=== PATIENT | male | born 1960 | race Caucasian/White ===

== ENCOUNTER 2025-07-25 06:25 | Day surgery (SDC) | payer OTHER, SELFPAY ==
--- NOTE | 2025-07-24 14:43 | SUR.PREOP ---
Pt will arrived tomorrow at 0630, [facility] personnel.
[2025-07-24 14:45] VITALS: BMI 32.3
--- NOTE | 2025-07-24 15:43 | ESCONSULT_ITS ---
RE: LINDSAY COATS : 1960 DATE OF CONSULTATION: 07/24/2025 HISTORY OF PRESENT ILLNESS: Patient is a 64-year-old inmate from [facility]. He has a history of urinary retention. This is the first time he has a catheter. Before that he had nocturia 2-3 times. Urine flow was fair. There is no history of burning or blood in the urine. He has a history of diabetes mellitus and he is on metformin. He has a history of colon cancer. He did not have any prostate surgery before. He had a surgery for melanoma. He has a history of diabetes mellitus, history of hypertension, and high cholesterol. He has no children. ALLERGIES: NONE KNOWN. HOME MEDICATIONS: He is on: 1. Metformin. 2. Lisinopril. 3. Hydrochlorothiazide. 4. Statin medications. IMAGING DATA: CT scan of the abdomen and pelvis revealed a cystitis. PHYSICAL EXAMINATION: Clinical examination reveals: HEENT: Normal. NECK: Supple. LUNGS: Clear. HEART: Heart sounds are normal. ABDOMEN: Soft without any organomegaly. No guarding. No rigidity. EXTREMITIES: Normal. GENITOURINARY: Phallus is normal. There is a Dudley catheter in place. Testes are down in the scrotum and they are normal. RECTAL: Examination revealed moderately enlarged smooth prostate without any hard nodules. IMPRESSION: 1. Urinary retention. 2. History of diabetes mellitus. PLAN: Cystoscopy to evaluate the lower urinary tract. Planned procedure, risks, and complications have been discussed with the patient. Patient has understood them and agreed to proceed. cc: [facility] DT: 09:10:56 TT: 09:27:00 Ref: [id number] - TID: [id number]
[2025-07-25] VITALS (7 sets, daily range): BP systolic 123–154; BP diastolic 74–94; PULSE 61–88; RESP 15–20; TEMP 36.7–37.1; O2SAT 96–98; BMI 30.8
[2025-07-25 07:43] LABS: Anion Gap 11 (7-16); BUN/Creatinine Ratio 11 Ratio (12-20); Blood Urea Nitrogen 12 mg/dL (9-23); Calcium 9.3 mg/dL (8.3-10.6); Carbon Dioxide 25.1 mMol/L (20.0-31.0); Chloride 106 mMol/L (98-107); Creatinine (Component) 1.1 mg/dL (0.6-1.3); Estimated Creatinine Clearance 96.6 mL/min (>60); Glucose 113 mg/dL (74-106); Osmolality,Calculated 283 (275-295); Potassium 4.1 mMol/L (3.4-5.1); Sodium 142 mMol/L (136-145); eGFR > 60 See Note
--- NOTE | 2025-07-25 09:04 | SUR.PHASEII ---
0904 Patient arrived to recovery awake and alert, breathing unlabored, vital signs stable, denies pain and nausea, 16F jones catheter in place with leg secure; draining to gravity, patient accompanied by two officers, report received from Tony STRICKLAND and Toribio DUPREE
--- NOTE | 2025-07-25 09:24 | SUR.PHASEII ---
0782 Dr. Moreno at bedside speaking with patient
[2025-07-25 10:08] LABS: Prostate Specific Antigen 3.24 ng/mL (0-4.00)
--- NOTE | 2025-07-25 10:12 | SUR.PHASEII ---
1012 Patient meets discharge criteria from recovery, awake and alert, breathing unlabored, vital signs stable, denies pain and nausea, Dudley catheter in place with leg secure, draining to gravity, assisted with dressing into his clothing by the officers at bedside, discharge instructions given to patient and officers, officer signed discharge instructions. Patient given all her belongings prior to discharge, transported via wheelchair and left in a private vehicle.
--- NOTE | 2025-07-25 10:54 | SUR.OPER ---
Late entry: Pt is in [facility] accompanied by two correctional officers. One CO accompanied pt into OR and waited along side pt will end of procedure. Pt to PACU in stable condition.
--- NOTE | 2025-07-25 20:43 | ESOP_ITS ---
RE: LINDSAY COTAS : 1960 DATE OF OPERATION: 07/25/2025 PREOPERATIVE DIAGNOSES: Patient from [facility], 64-year-old gentleman with history of urinary retention and history of diabetes mellitus. POSTOPERATIVE DIAGNOSES: Patient from [facility], 64-year-old gentleman with history of urinary retention and history of diabetes mellitus. PROCEDURES PERFORMED: Cystourethroscopy and urethral dilatation. ANESTHESIA: Monitored anesthesia by Mr. Asa Lin. INDICATIONS: Patient is a 64-year-old diabetic male with history of urinary retention and prostatism. He has been on tamsulosin 0.4 mg twice a day and finasteride 5 mg every day. PSA was requested. He has a Dudley catheter and he is now scheduled to have cystourethroscopy. Rectally, he has a moderately enlarged smooth prostate without any hard nodules. Patient is on medicine by mouth for his diabetes mellitus. He is also on Cipro at this time. DESCRIPTION OF PROCEDURE: After the patient was brought to the operating table under adequate monitored anesthesia and dorsal lithotomy position, parts were prepped and draped in the usual fashion. Local anesthetic was injected inside the urethra. A cystoscopy was then carried out which revealed adequate urethral meatus, normal-appearing urethra. Prostatic urethra revealed moderate enlargement of bilobed prostate. Scope was introduced into the bladder. Residual urine was small because patient had a Dudley catheter just before the procedure. There are no intravesical stones or tumors. There is some evidence of catheter cystitis in view of his Dudley catheter for a few days. Urethral orifices are normal in position and appearance. Scope was withdrawn, urethra was dilated, and [address] [place] Dudley catheter was reinserted into the bladder and was connected to a sterile bag. Patient tolerated the entire procedure well and left the room in good condition. IMPRESSION: Moderately enlarged prostate, bilobed, which is partly obstructive. PLAN: Will keep the Dudley catheter. Patient has a long way to travel so catheter should be removed at the intermediate to see if patient can urinate. It is possible that patient will be able to urinate. Patient was able to urinate prior to his episode of urinary retention. Patient is on tamsulosin 0.4 mg twice a day and finasteride 5 mg once a day. If patient cannot urinate, he should have Dudley catheter put back in. I would like to see the patient in about 2 weeks in my office. PSA has been drawn in the recovery room. Thank you very much for your kind referral and allowing me to participate in the management of this patient. cc: [facility] DT: 09:18:45 TT: 20:43:00 Ref: [id number] - TID: [id number]
== END 2025-07-25 10:12 | disposition home or self-care (01) ==
PROVIDERS: Anesthesiology; Referring Provider Surgery; Visit Provider Surgery
PROC: 0TJB8ZZ Inspection of Bladder, Via Natural or Artificial Opening Endoscopic (ICD-10-PCS; CPT 52000; principal; 2025-07-25 08:30)
DX: N40.1 Benign prostatic hyperplasia with lower urinary tract symptoms (principal); R33.8 Other retention of urine; E11.9 Type 2 diabetes mellitus without complications; Z85.038 Personal history of other malignant neoplasm of large intestine
CPT/HCPCS: 52281; 36415; 80048; 84153; 87077; 87086; 87186; A4217; A4649; J0131; J0694; J2250; J2704; J3010; J3490